=== PATIENT | male | born 1955 | race Caucasian/White ===

== ENCOUNTER 2017-09-17 08:23 | Emergency (ER) | payer BC ==
[2017-09-17] MEDS: Oxymetazoline 0.05% Nasal Spray 15 ML Bottle NAS ONE (08:45)
--- NOTE | 2017-09-17 08:55 | EDM.PDOC ---
ED HPI GENERAL MEDICAL PROBLEM - General Chief Complaint: ENT Problem Stated Complaint: NOSE BLEED Time Seen by Provider: 09/17/17 08:33 Source of Information: Reports: Patient History Limitations: Reports: No Limitations - History of Present Illness INITIAL COMMENTS - FREE TEXT/NARRATIVE: Patient states he has had nose bleed episodes off and on for the last 6 months. He denies any medical history. No history of blood disorder within his family , no blood cancers. He does admit to doing some occasional picking of his nose. He states the only bleeding is from the right side. He has no other complaints today. Nose has been bleeding for about 1 hours on his arrival. The nare is packed with gauze and is no longer actively bleeding. Onset: Today Duration: Intermittent Severity: Mild - Related Data Allergies Allergy/AdvReac Type Severity Reaction Status Date / Time No Known Allergies Allergy Verified 09/17/17 08:40 Past Medical History Cardiovascular History: Reports: High Cholesterol Social & Family History - Tobacco Use Smoking Status *Q: Never Smoker ED ROS ENT - Review of Systems Review Of Systems: See Below Constitutional: Reports: No Symptoms HEENT: Reports: Nosebleed Respiratory: Reports: No Symptoms Cardiovascular: Reports: No Symptoms Endocrine: Reports: No Symptoms GI/Abdominal: Reports: No Symptoms : Reports: No Symptoms Musculoskeletal: Reports: No Symptoms Skin: Reports: No Symptoms Neurological: Reports: No Symptoms Psychiatric: Reports: No Symptoms Hematologic/Lymphatic: Reports: No Symptoms Immunologic: Reports: No Symptoms ED EXAM, ENT - Physical Exam Exam: See Below Exam Limited By: No Limitations General Appearance: Alert, WD/WN, No Apparent Distress Eye Exam: Bilateral Eye: EOMI, PERRL Nose: Normal Inspection, No Blood Mouth/Throat: Normal Inspection, Normal Gums, Normal Lips, Normal Oropharynx, Normal Teeth Respiratory/Chest: No Respiratory Distress, Lungs Clear, Normal Breath Sounds, No Accessory Muscle Use, Chest Non-Tender Cardiovascular: Normal Peripheral Pulses, Regular Rate, Rhythm, No Edema, No Gallop, No JVD, No Murmur, No Rub Course - Vital Signs Last Recorded V/S: Last Vital Signs Temp 35.8 C 09/17/17 08:25 Pulse 80 09/17/17 08:25 Resp 18 09/17/17 08:25 BP 141/87 H 09/17/17 08:25 Pulse Ox 96 09/17/17 08:25 - Orders/Labs/Meds Meds: Medications Discontinued Medications Generic Name Dose Route Start Last Admin Trade Name Karina PRN Reason Stop Dose Admin Oxymetazoline HCl 1 ml 09/17/17 08:33 Afrin Original 0.05% Nasal [place] JEFFERY 09/17/17 08:34 ONETIME ONE - Re-Assessments/Exams Free Text/Narrative Re-Assessment/Exam: 09/17/17 10:02 I did have patient blow his nose, and after this, I did liberally apply afrin to the affected side. No bleeding noted. Await CBC, INR, and PT/PTT results. Departure - Departure Time of Disposition: 09:43 Disposition: Home, Self-Care 01 Clinical Impression: Epistaxis - Discharge Information Instructions: Nosebleed, Adult, [id number] Forms: ED Department Discharge Additional Instructions: You may use the Afrin as needed for bloody noses, but I would recommend you go to the pharmacy and get regular SALINE SPRAY to use for your nose. This will keep your nasal mucosa moist and lessen your chances of recurrent bloody nose episodes. Your labwork today was normal. We will call with any abnormal results that were sent out. Please call us with any questions or concerns. - Problem List & Annotations (1) Epistaxis SNOMED Code(s): 101529572 Code(s): R04.0 - EPISTAXIS Status: Acute Priority: Low Current Visit: Yes - Problem List Review Problem List Initiated/Reviewed/Updated: Yes - Assessment/Plan Assessment:: Epistaxis right side Plan: You may use the Afrin as needed for bloody noses, but I would recommend you go to the pharmacy and get regular SALINE SPRAY to use for your nose. This will keep your nasal mucosa moist and lessen your chances of recurrent bloody nose episodes. Your labwork today was normal. We will call with any abnormal results that were sent out. Please call us with any questions or concerns.
== END 2017-09-17 09:50 | disposition home or self-care (01) ==
LOC: VM.ED 08:23
DX: R04.0 Epistaxis (principal)
CPT/HCPCS: 36415; 85025; 85610; 99283; A9270-GY

== ENCOUNTER 2020-05-24 07:15 | Day surgery (SDC) | payer MEDICARE, OTHER ==
[2020-05-22 13:21] LABS: CORONAVIRUS COVID-19 RAPID NEGATIVE (NEGATIVE)
[2020-05-24] MEDS ORDERED: Propofol 200 MG/20 ML SDV ONE (07:39)
[2020-05-24] MEDS ORDERED: fentaNYL 100 MCG/2 ML SDV ONE (07:39)
[2020-05-24] MEDS: Lactated Ringers 1,000 ML IV SCH (07:42)
--- NOTE | 2020-05-25 14:43 | OR ---
PREOPERATIVE DIAGNOSIS: Screening colonoscopy. POSTOPERATIVE DIAGNOSIS: Screening colonoscopy. PROCEDURE PERFORMED: Total flexible colonoscopy. ANESTHESIA: MAC anesthesia. COMPLICATIONS: None. BLOOD LOSS: None. FINDINGS: 1. Inadequate bowel prep with liquid stool and fibrous material present throughout the colon. We were unable to suction and wash this adequately due to continuous clogging of the scope by the fibrous material. 2. No polyps seen within the limits of this poorly prepped colon. START TIME: 0956. CECUM TIME: 1000. STOP TIME: 1014. BOWEL PREP: [place] class 1. INDICATIONS FOR PROCEDURE: Mr. Butt is a 65-year-old male here for screening colonoscopy. His last scope was 10 years ago. He reportedly had no polyps at that time. He denies any bloody or dark black stools. No change in bowel habits. He denies any family history of colon cancer. DETAILS OF PROCEDURE: Informed consent was obtained. The patient brought to the procedure room and placed in left lateral decubitus position. MAC anesthesia was induced by Anesthesia colleagues. The colonoscope equipped with an Endocuff device was introduced into the rectum and advanced all the way to the cecum. The appendiceal orifice and ileocecal valve were photographed. The colonoscope was then slowly withdrawn. There were liquid stool and fibrous material throughout the colon. We were unable to adequately suction out this because the fibrous material was continuously clogging the scope. The most limited evaluation was in the sigmoid colon where at least 50% of the mucosa was not seen. A retroflexed view was obtained. The patient was awoken from MAC anesthesia by Anesthesia colleagues without incident. Recommend repeat colonoscopy within 1 year due to poor prep and inability to fully evaluate the mucosa. RKM: 05/24/2020 10:20:59 MODL: 05/24/2020 14:12:06 /[id number]
== END 2020-05-24 11:30 | disposition home or self-care (01) ==
LOC: VM.SDS 07:15
PROVIDERS: ATTEND Student in an Organized Health Care Education/Training Program
DX: Z12.11 Encounter for screening for malignant neoplasm of colon (principal); E78.00 Pure hypercholesterolemia, unspecified; E66.9 Obesity, unspecified; Z79.899 Other long term (current) drug therapy; Z87.891 Personal history of nicotine dependence; Z98.890 Other specified postprocedural states; Z68.32 Body mass index [BMI] 32.0-32.9, adult; Z01.812 Encounter for preprocedural laboratory examination; Z20.828 Contact with and (suspected) exposure to other viral communicable diseases
CPT/HCPCS: 00812; J2704; J3010; J7120; U0002